=== PATIENT | female | born 1950 | race Two or more races ===

== ENCOUNTER → 2024-08-26 | Emergency (ER) | payer OTHER ==
[~2024-08-26] VITALS: Ht 149.9 cm; Wt 67.1 kg
[~2024-08-26] MED LIST: 0.9 % SODIUM CHLORIDE 1,000 ML IV SCH; AMLODIPINE BESYL5 MG PO; ATORVASTATIN CA40 MG PO; CLOPIDOGREL BIS75 MG PO; GABAPENTIN400 MG PO; GLYXAMBI 25 MG1 EACH PO; LANTUS; ROSUVASTATIN CA10 MG PO; SERTRALINE HCL25 MG PO; VALSARTAN40 MG PO; [UNRECOGNIZED DRUG - OTHER]
[2024-08-26 13:16] LABS: HEMATOCRIT 31.7 % (36.0-45.00); HEMOGLOBIN 10.4 g/dL (12.0-15.00); MEAN CELL VOLUME 86.9 fL (80.00-100.00); MEAN CORPUSCULAR HEMOGLOBIN 28.6 pg (27.00-32.0); MEAN CORPUSCULAR HGB CONC 32.9 g/dl (32.0-36.0); PLATELET COUNT 196 K/uL (150-450); RED BLOOD COUNT 3.65 M/uL (4.00-6.00); RED CELL DISTRIBUTION WIDTH 15.2 % (11.5-14.5)
[2024-08-26 13:37] LABS: CALCIUM 9.1 mg/dL (8.5-10.1); CREATININE SERUM 1.11 mg/dL (0.55-1.02); GFR 48.05; POTASSIUM 3.62 mEq/L (3.5-5.1)
[2024-08-26 14:27] LABS: PH,URINE 5.5 (5.0-8.0); URINE APPEARANCE Clear; URINE BILIRRUBIN Negative (NEGATIVE); URINE BLOOD Negative; URINE COLOR Yellow; URINE KETONE Negative (NEGATIVE); URINE LEUKOCYTE Negative; URINE NITRATE Negative; URINE PROTEIN Negative (NEGATIVE); URINE UROBILINOGEN 0.2 E.U./dl
[2024-08-26 14:30] LABS: URINE BACTERIA 9.7 uL (0.0-1933); URINE EPITHELIAL CELLS 3.7 uL (0.0-38.8)
[2024-08-26 15:02] LABS: URINE CAST 0.58 uL (0.0-1.40); URINE GLUCOSE 500 MG/DL (NEGATIVE); URINE RBC 0.5 uL (0.0-20.8)
== END | disposition home or self-care (01) ==
LOC: ER 10:43
PROVIDERS: Emergency Medicine
DX: K52.89 Other specified noninfective gastroenteritis and colitis (principal); I10 Essential (primary) hypertension; E78.00 Pure hypercholesterolemia, unspecified; E11.649 Type 2 diabetes mellitus with hypoglycemia without coma; Z79.4 Long term (current) use of insulin; Z88.6 Allergy status to analgesic agent